=== PATIENT | female | born 1995 | race Asian ===

== ENCOUNTER 2018-05-16 12:32 | Emergency (ER) | payer MEDICAID ==
[~2018-05-16] VITALS: Ht 162.6 cm; Wt 80.6 kg
[~2018-05-16 12:32] MED LIST: ESOM40CA PO; NORE1TAB86 PO
[2018-05-16 13:05] LABS: BASOPHILS # (AUTO) 0.04 x10^3/uL (0-0.1); BASOPHILS % (AUTO) 1 % (0-1); EOSINOPHILS # (AUTO) 0.24 x10^3/uL (0-0.4); EOSINOPHILS % (AUTO) 3 % (1-7); LYMPHOCYTES % (AUTO) 46 % (22-44); MD NO; MEAN CORPUSCULAR HEMOGLOBIN 27.8 pg (27.0-34.8); MEAN CORPUSCULAR HGB CONC 33.9 g/dL (32.4-35.8); MEAN CORPUSCULAR VOLUME 81.9 fL (80-100); MEAN PLATELET VOLUME 7.9 fL (7.4-10.4); MONOCYTES # (AUTO) 0.57 x10^3/uL (0.2-0.8); MONOCYTES % (AUTO) 8 % (2-9); NEUTROPHILS # (AUTO) 3.24 x10^3/uL (1.8-6.8); NEUTROPHILS % (AUTO) 43 % (42-75); PLATELET COUNT 440 x10^3/uL (130-400); RED BLOOD COUNT 4.89 x10^6/uL (3.82-5.3); RED CELL DISTRIBUTION WIDTH 12.8 % (9.6-15.2)
[2018-05-16 13:15] LABS: ALANINE AMINOTRANSFERASE 325 U/L (12-78); ALBUMIN 3.7 g/dL (3.4-5.0); ANION GAP 8 mmol/L (5-15); CALCIUM 9.3 mg/dL (8.5-10.1); CHLORIDE 109 mmol/L (98-107); CREATININE 0.82 mg/dL (0.55-1.02)
[2018-05-16 13:20] LABS: ALKALINE PHOSPHATASE 59 U/L (45-117); BILIRUBIN,TOTAL 0.3 mg/dL (0.2-1.0); TOTAL PROTEIN 8.5 g/dL (6.4-8.2)
[2018-05-16] MEDS ORDERED: SODIUM CHLORIDE FLUSH 10ML SYR IVF ONE (13:30)
[2018-05-16] MEDS ORDERED: ONDANSETRON ODT 4 MG PO ONE (13:30)
[2018-05-16] MEDS ORDERED: SODIUM CHLORIDE 0.9% 1,000ML IVBOLUS ONE (13:30)
[2018-05-16 14:37] LABS: MICROSCOPIC AUTO
[2018-05-16 14:45] LABS: CULTURE INDICATED? NO
[2018-05-16] MEDS ORDERED: ONDANSETRON ODT 4 MG ONE (15:15)
[2018-05-16] MEDS ORDERED: DULO20CA45 PO (15:27)
[2018-05-16] MEDS ORDERED: LORA-445 PO (15:27)
[2018-05-16] MEDS ORDERED: MECLIZINE CHEWABLE 25 MG TAB ONE (16:03)
[2018-05-16 16:22] VITALS: BP 110/55
[2018-05-16] MEDS ORDERED: MECLIZINE CHEWABLE 25 MG TAB PO ONE (16:30)
== END 2018-05-16 16:25 | disposition home or self-care (01) ==
LOC: ED 16:16
DX: R10.13 Epigastric pain (principal); F41.1 Generalized anxiety disorder; F32.9 Major depressive disorder, single episode, unspecified; R94.5 Abnormal results of liver function studies
CPT/HCPCS: 36415; 74021; 76700; 80053; 80074; 81001; 83690; 84703; 85025; 99285; J7030; Q0162